=== PATIENT | male | born 1975 | race Hispanic/Latino ===

== ENCOUNTER 2020-11-23 17:33 | Inpatient (IN) | payer SELFPAY ==
[~2020-11-23] VITALS: Ht 160 cm; Wt 69.2 kg
[2020-11-23] MEDS ORDERED: LORAZEPAM 2 MG/ML 1 ML VIAL ONE ×2 (18:39→21:58)
[2020-11-23] MEDS: BANANA BAG IV SCH ×4 (19:00)
[2020-11-23 19:48] LABS: BASOPHILS % (AUTO) 0.2 % (0.0-5.0); HEMATOCRIT 27.4 % (42-54); LYMPHOCYTES % (AUTO) 7.1 % (21.0-51.0); MEAN CORPUSCULAR HEMOGLOBIN 23.5 pg (27.0-33.0); MEAN CORPUSCULAR HGB CONC 30.7 g/dL (32.0-36.0); MEAN CORPUSCULAR VOLUME 76.5 fL (79-99); MONOCYTES % (AUTO) 14.5 % (3.0-13.0); NEUTROPHILS % (AUTO) 77.9 % (40.0-77.0); PLATELET COUNT (AUTO) 75 K/uL (130-400); RED BLOOD CELL COUNT(AUTO) 3.58 MIL/uL (4.50-6.20); RED CELL DISTRIBUTION WIDTH 19.5 % (11.0-15.5); WHITE BLOOD COUNT (AUTO) 5.8 K/uL (4.8-10.8)
[2020-11-23 20:00] LABS: CREATININE 0.7 mg/dL (0.5-1.5); POTASSIUM 3.1 mmol/L (3.5-5.1)
[2020-11-23 20:10] LABS: ALBUMIN 2.6 g/dL (3.5-5.0); BILIRUBIN,TOTAL 2.4 mg/dL (0.2-1.0); TOTAL PROTEIN, SERUM 7.7 g/dL (6.0-8.3)
[2020-11-23 20:11] LABS: INR 1.5 (0.85-1.15); PROTHROMBIN TIME 15.8 SEC (9.6-11.6)
[2020-11-23 20:32] LABS: PLATELET MORPHOLOGY DECREASED
[2020-11-23 21:07] LABS: PARTIAL THROMBOPLASTIN TIME 36.6 SEC (26.3-35.5)
[2020-11-23 21:40] LABS: APPEARANCE,URINE Clear (CLEAR); BILIRUBIN,URINE Negative (NEGATIVE); COLOR,URINE Yellow (YELLOW); GLUCOSE, URINE (UA) Negative (NEGATIVE); KETONES,URINE Trace mg/dL (NEGATIVE); LEUKOCYTE ESTERASE ,URINE Trace (NEGATIVE); NITRATE,URINE Negative (NEGATIVE); OCCULT BLOOD,URINE Large (NEGATIVE); PROTEIN,URINE POS 1+ mg/dL (NEGATIVE)
[2020-11-23 21:47] LABS: BACTERIA,URINE Rare /HPF (None Seen); SQUAMOUS EPITHELIAL CELL,UR Rare /HPF (0-2)
[2020-11-23 21:52] LABS: AMPHET/METH SCREEN,URINE NEGATIVE (NEGATIVE); BARBITURATE SCREEN, URINE NEGATIVE (NEGATIVE); BENZODIAZEPINES SCREEN,URINE NEGATIVE (NEGATIVE); CANNABINOID SCREEN,URINE POSITIVE (NEGATIVE); COCAINE SCREEN,URINE NEGATIVE (NEGATIVE); OPIATE SCREEN,URINE NEGATIVE (NEGATIVE); PHENCYCLIDINE SCREEN,URINE NEGATIVE (NEGATIVE)
[2020-11-23] MEDS ORDERED: POTASSIUM BICARB/CIT AC 25 MEQ TABLET.EFF ONE (21:57)
[2020-11-23] MEDS ORDERED: PHARMACY COMMUNICATION MISC PRN (22:00)
[2020-11-23] MEDS: PHYTONADIONE 10 MG/1 ML AMP IM SCH (22:00)
[2020-11-23] MEDS ORDERED: ONDANSETRON 4MG INJ IV PRN (22:00)
[2020-11-23] MEDS ORDERED: LACTULOSE 20 GM/30 ML UDCUP PO PRN (22:00)
[2020-11-23] MEDS ORDERED: CHLORDIAZEPOXIDE HCL 25 MG CAP PO PRN (22:00)
[2020-11-23] MEDS: 0.9%NACL 1000ML 1,000 ML IV SCH (22:00)
[2020-11-23] MEDS: KCL 20 MEQ ERTAB PO SCH (22:30)
[2020-11-23 22:43] LABS: AMPHET/METH SCREEN,URINE NEGATIVE (NEGATIVE); BARBITURATE SCREEN, URINE NEGATIVE (NEGATIVE); BENZODIAZEPINES SCREEN,URINE NEGATIVE (NEGATIVE); CANNABINOID SCREEN,URINE POSITIVE (NEGATIVE); COCAINE SCREEN,URINE NEGATIVE (NEGATIVE); OPIATE SCREEN,URINE NEGATIVE (NEGATIVE); PHENCYCLIDINE SCREEN,URINE NEGATIVE (NEGATIVE)
[2020-11-23] MEDS ORDERED: PHYTONADIONE 10 MG/1 ML AMP ONE (23:01)
[2020-11-23] MEDS ORDERED: KCL 20 MEQ ERTAB PO ONE (23:01)
[2020-11-23 23:07] LABS: MAGNESIUM 1.6 mg/dL (1.80-2.40); PHOSPHORUS 3.1 mg/dL (2.5-4.9)
[2020-11-24] MEDS ORDERED: MAGNESIUM 2GM PREMIX 50ML 50 ML IV ONE (00:29)
[2020-11-24] MEDS ORDERED: LACTULOSE 20 GM/30 ML UDCUP ONE (00:29)
[2020-11-24] MEDS: LACTULOSE 20 GM/30 ML UDCUP PO SCH ×3 (00:30→19:57)
[2020-11-24] MEDS: MAGNESIUM 2GM PREMIX 50ML 50 ML IV NR ×2 (00:48→23:58)
[2020-11-24 01:00] VITALS: BP 106/72
[2020-11-24] MEDS: ZOSYN 3.375GM+NS 50ML 50 ML IV SCH ×4 (01:10→23:50)
[2020-11-24 04:00] VITALS: BP 115/70
[2020-11-24 05:51] LABS: BASOPHILS % (AUTO) 0.2 % (0.0-5.0); HEMATOCRIT 27.3 % (42-54); LYMPHOCYTES % (AUTO) 18.1 % (21.0-51.0); MEAN CORPUSCULAR HEMOGLOBIN 23.1 pg (27.0-33.0); MEAN CORPUSCULAR HGB CONC 29.7 g/dL (32.0-36.0); MEAN CORPUSCULAR VOLUME 77.8 fL (79-99); MONOCYTES % (AUTO) 17.9 % (3.0-13.0); NEUTROPHILS % (AUTO) 62.3 % (40.0-77.0); PLATELET COUNT (AUTO) 83 K/uL (130-400); RED BLOOD CELL COUNT(AUTO) 3.51 MIL/uL (4.50-6.20); RED CELL DISTRIBUTION WIDTH 19.9 % (11.0-15.5)
[2020-11-24 06:02] LABS: ALBUMIN 2.5 g/dL (3.5-5.0); BILIRUBIN,TOTAL 3.3 mg/dL (0.2-1.0); CREATININE 0.7 mg/dL (0.5-1.5); POTASSIUM 3.8 mmol/L (3.5-5.1)
[2020-11-24 06:03] LABS: INR 1.48 (0.85-1.15); PROTHROMBIN TIME 15.6 SEC (9.6-11.6)
[2020-11-24 06:07] LABS: % IRON SATURATION 14.6 % (30-44)
[2020-11-24 08:00] VITALS: BP 119/70
[2020-11-24] MEDS: 0.9%NACL 1000ML 1,000 ML IV SCH ×2 (08:00→18:00)
[2020-11-24] MEDS: PHYTONADIONE 10 MG/1 ML AMP IM SCH (10:42)
[2020-11-24] MEDS: FAMOTIDINE 20MG VIAL IV SCH ×2 (10:42→19:57)
[2020-11-24] MEDS: THIAMINE HCL 100 MG/ML 2ML VIAL IM SCH (10:42)
[2020-11-24] MEDS: LEVETIRACETAM 500 MG TABLET PO SCH ×2 (10:42→19:57)
[2020-11-24] MEDS: FOLIC ACID 1 MG TABLET PO SCH (10:43)
[2020-11-24] MEDS: MULTIVITAMIN TABLET PO SCH (10:44)
[2020-11-24] MEDS: CHLORDIAZEPOXIDE HCL 25 MG CAP PO SCH ×3 (11:30→23:50)
[2020-11-24] MEDS ORDERED: GADODIAMIDE 10 MMOL/20 ML VIAL IV ONE (11:38)
[2020-11-24] MEDS: BANANA BAG IV SCH ×4 (11:58)
[2020-11-24 12:05] VITALS: BP 121/74
[2020-11-24] MEDS: LORAZEPAM 2 MG/ML 1 ML VIAL IVP PRN (12:14)
[2020-11-24 16:07] VITALS: BP 115/67
[2020-11-24 19:30] VITALS: BP 143/85
[2020-11-24] MEDS: KCL 20 MEQ ERTAB PO SCH (21:42)
[2020-11-25] VITALS (20 sets, daily range): BP systolic 98–131; BP diastolic 63–88
[2020-11-25] MEDS: LORAZEPAM 2 MG/ML 1 ML VIAL IVP PRN (00:57)
[2020-11-25] MEDS: DiphenhydrAMINE HCL 50 MG/ML VIAL IV SCH (02:30)
[2020-11-25] MEDS ORDERED: DiphenhydrAMINE HCL 50 MG/ML VIAL ONE (02:30)
[2020-11-25] MEDS: HALOPERIDOL INJ 5 MG/ML VIAL IM SCH (02:41)
[2020-11-25 05:29] LABS: BASOPHILS % (AUTO) 0.5 % (0.0-5.0); EOSINOPHILS % (AUTO) 1.1 % (0.0-8.0); HEMATOCRIT 28.1 % (42-54); LYMPHOCYTES % (AUTO) 17.7 % (21.0-51.0); MEAN CORPUSCULAR HEMOGLOBIN 23.4 pg (27.0-33.0); MEAN CORPUSCULAR HGB CONC 30.2 g/dL (32.0-36.0); MEAN CORPUSCULAR VOLUME 77.4 fL (79-99); MONOCYTES % (AUTO) 18.6 % (3.0-13.0); NEUTROPHILS % (AUTO) 61.7 % (40.0-77.0); PLATELET COUNT (AUTO) 79 K/uL (130-400); RED BLOOD CELL COUNT(AUTO) 3.63 MIL/uL (4.50-6.20); RED CELL DISTRIBUTION WIDTH 19.9 % (11.0-15.5); WHITE BLOOD COUNT (AUTO) 5.7 K/uL (4.8-10.8)
[2020-11-25] MEDS: CHLORDIAZEPOXIDE HCL 25 MG CAP PO SCH ×2 (05:46→20:49)
[2020-11-25 05:49] LABS: CREATININE 0.7 mg/dL (0.5-1.5); POTASSIUM 3.1 mmol/L (3.5-5.1)
[2020-11-25] MEDS: 0.9%NACL 1000ML 1,000 ML IV SCH ×3 (05:49→23:38)
[2020-11-25 05:56] LABS: INR 1.48 (0.85-1.15); PROTHROMBIN TIME 15.6 SEC (9.6-11.6)
[2020-11-25 05:57] LABS: PARTIAL THROMBOPLASTIN TIME 38.7 SEC (26.3-35.5)
[2020-11-25] MEDS ORDERED: LIDOCAINE HCL-MPF 1% 2ML VIAL IV PRN (07:45)
[2020-11-25] MEDS ORDERED: POTASSIUM CHLORIDE 10MEQ/100ML 100 ML IV PRN (07:45)
[2020-11-25] MEDS: PHYTONADIONE 10 MG/1 ML AMP IM SCH (09:00)
[2020-11-25] MEDS ORDERED: CHLORDIAZEPOXIDE HCL 25 MG CAP PO SCH (11:30)
[2020-11-25] MEDS ORDERED: PROPOFOL 10 MG/ML 20ML VIAL IV ONE (11:57)
[2020-11-25] MEDS: ZOSYN 3.375GM+NS 50ML 50 ML IV SCH ×3 (14:20→23:38)
[2020-11-25] MEDS: THIAMINE HCL 100 MG/ML 2ML VIAL IM SCH (14:22)
[2020-11-25] MEDS: FOLIC ACID 1 MG TABLET PO SCH (14:23)
[2020-11-25] MEDS: MULTIVITAMIN TABLET PO SCH (14:24)
[2020-11-25] MEDS: LACTULOSE 20 GM/30 ML UDCUP PO SCH ×2 (14:24→20:48)
[2020-11-25] MEDS: FAMOTIDINE 20MG VIAL IV SCH ×2 (14:25→20:48)
[2020-11-25] MEDS: LEVETIRACETAM 500 MG TABLET PO SCH ×2 (14:25→20:49)
[2020-11-25] MEDS: BANANA BAG IV SCH ×4 (19:00)
[2020-11-25] MEDS: KCL 20 MEQ ERTAB PO SCH (20:49)
[2020-11-25] MEDS: MAGNESIUM 2GM PREMIX 50ML 50 ML IV NR (23:38)
[2020-11-26] MEDS: HALOPERIDOL INJ 5 MG/ML VIAL IM SCH (01:40)
[2020-11-26] MEDS: DiphenhydrAMINE HCL 50 MG/ML VIAL IV SCH ×2 (01:40→02:39)
[2020-11-26 04:04] VITALS: BP 120/73
[2020-11-26 05:48] LABS: BASOPHILS % (AUTO) 0.6 % (0.0-5.0); EOSINOPHILS % (AUTO) 1.6 % (0.0-8.0); HEMATOCRIT 29.7 % (42-54); LYMPHOCYTES % (AUTO) 21.2 % (21.0-51.0); MEAN CORPUSCULAR HEMOGLOBIN 23.3 pg (27.0-33.0); MEAN CORPUSCULAR VOLUME 77.7 fL (79-99); MONOCYTES % (AUTO) 22.5 % (3.0-13.0); NEUTROPHILS % (AUTO) 53.9 % (40.0-77.0); PLATELET COUNT (AUTO) 91 K/uL (130-400); RED BLOOD CELL COUNT(AUTO) 3.82 MIL/uL (4.50-6.20); RED CELL DISTRIBUTION WIDTH 20.4 % (11.0-15.5); WHITE BLOOD COUNT (AUTO) 6.2 K/uL (4.8-10.8)
[2020-11-26 05:59] LABS: CREATININE 0.7 mg/dL (0.5-1.5); POTASSIUM 3.8 mmol/L (3.5-5.1)
[2020-11-26 08:00] VITALS: BP 130/89
[2020-11-26 08:14] LABS: HEPATITIS B CORE IGM Negative (Negative); HEPATITIS Bs ANTIGEN SCREEN P Negative (Negative)
[2020-11-26] MEDS: CHLORDIAZEPOXIDE HCL 25 MG CAP PO SCH (09:00)
[2020-11-26] MEDS ORDERED: LACT10SO9 PO (09:02)
[2020-11-26] MEDS ORDERED: LEVE-43 PO (09:02)
[2020-11-26] MEDS: 0.9%NACL 1000ML 1,000 ML IV SCH (10:00)
[2020-11-26] MEDS: LACTULOSE 20 GM/30 ML UDCUP PO SCH (10:20)
[2020-11-26] MEDS: FAMOTIDINE 20MG VIAL IV SCH (10:20)
[2020-11-26] MEDS: MULTIVITAMIN TABLET PO SCH (10:20)
[2020-11-26] MEDS: LEVETIRACETAM 500 MG TABLET PO SCH (10:20)
[2020-11-26] MEDS: FOLIC ACID 1 MG TABLET PO SCH (10:20)
[2020-11-26] MEDS: PHYTONADIONE 10 MG/1 ML AMP IM SCH (10:21)
[2020-11-26] MEDS: THIAMINE HCL 100 MG/ML 2ML VIAL IM SCH (10:21)
[2020-11-26] MEDS: ZOSYN 3.375GM+NS 50ML 50 ML IV SCH (10:25)
[2020-11-26] MEDS ORDERED: NICOTINE 7 MG/ 24 HR PATCH TD SCH (10:45)
[2020-11-26 11:34] VITALS: BP 118/86
[2020-11-26] MEDS ORDERED: CHLORDIAZEPOXIDE HCL 25 MG CAP PO SCH (21:00)
[2020-11-27] MEDS ORDERED: NICOTINE 7 MG/ 24 HR PATCH TD SCH (09:00)
== END 2020-11-26 14:30 | disposition home or self-care (01) | DRG 101 ==
LOC: EDH 17:33 → EDHIP 17:34 → 3AH 11-24 00:13 → 3BH 11-25 04:42
PROVIDERS: ADMIT Internal Medicine; ATTEND Internal Medicine
PROC: 06L38CZ Occlusion of Esophageal Vein with Extraluminal Device, Via Natural or Artificial Opening Endoscopic (ICD-10-PCS; principal; 2020-11-25)
DX: G40.89 Other seizures (principal); F10.239 Alcohol dependence with withdrawal, unspecified; E87.1 Hypo-osmolality and hyponatremia; N39.0 Urinary tract infection, site not specified; E44.0 Moderate protein-calorie malnutrition; G93.40 Encephalopathy, unspecified; E72.20 Disorder of urea cycle metabolism, unspecified; I85.10 Secondary esophageal varices without bleeding; K74.60 Unspecified cirrhosis of liver; E86.1 Hypovolemia; E87.6 Hypokalemia; D69.6 Thrombocytopenia, unspecified; D50.9 Iron deficiency anemia, unspecified; F03.90 Unspecified dementia, unspecified severity, without behavioral disturbance, psychotic disturbance, mood disturbance, and anxiety; K31.89 Other diseases of stomach and duodenum; K75.9 Inflammatory liver disease, unspecified; F17.210 Nicotine dependence, cigarettes, uncomplicated; F12.10 Cannabis abuse, uncomplicated; Z20.822 Contact with and (suspected) exposure to COVID-19; Z68.27 Body mass index [BMI] 27.0-27.9, adult; Z90.49 Acquired absence of other specified parts of digestive tract
CPT/HCPCS: 36415; 43244; 70450; 70553; 71045; 76700; 80048; 80053; 80074; 80305; 81001; 82140; 82270; 82550; 83540; 83550; 83690; 83735; 84100; 84145; 84484; 85025; 85045; 85610; 85730; 87426; 93005; A4606; A9579; G0378; J1200; J1630; J2060; J2543; J2704; J3411; J3430; J3475; J3490; J7030; U0003